=== PATIENT | female | born 1970 | race Caucasian/White ===

== ENCOUNTER 2021-10-18 11:14 | Day surgery (SDC) | payer BC ==
[~2021-10-18 11:14] MED LIST: Lactated Ringers 1,000 ML IV SCH; Sodium Chloride 0.9% 10 ML Syringe FLUSH PRN; Sodium Chloride 0.9% 2.5 ML Syringe FLUSH PRN; Sodium Chloride 0.9% 20 ML SDV IV PRN; propofoL 50 ML ONE
== END 2021-10-18 13:40 | disposition home or self-care (01) ==
LOC: MW.SDS 11:14
PROVIDERS: ATTEND Surgery
DX: Z12.11 Encounter for screening for malignant neoplasm of colon (principal); F32.A Depression, unspecified; Z79.899 Other long term (current) drug therapy
CPT/HCPCS: 45378; J2704; J7120; 00812

== ENCOUNTER 2024-11-15 08:22 | Day surgery (SDC) | payer BC, OTHER ==
[~2024-11-15 08:22] MED LIST changes: +Albuterol 0.083% 2.5 MG/3 ML Neb Soln NEB PRN; +Dexamethasone 4 MG/ML 5 ML MDV ONE; -Lactated Ringers 1,000 ML IV SCH; +Naloxone 0.4 MG/ML SDV IVPUSH PRN; +Ondansetron 4 MG/2 ML SDV IVPUSH PRN; -Sodium Chloride 0.9% 20 ML SDV IV PRN; +fentaNYL 50 MCG/ML SDV IVPUSH PRN; -propofoL 50 ML ONE
[2024-11-15] MEDS: Scopalamine 1mg/3day Transdermal Patch TOP ONE (08:45)
[2024-11-15 08:59] LABS: MEAN PLATELET VOLUME 9.6 fL (9.4-12.3); NRBC ABSOLUTE 0.00 K/uL (0.00-0.02); NRBC PERCENT 0.0 /100WBC (0.0-0.2); PLATELET COUNT,PLT 220 K/uL (150-400); RED BLOOD CELL COUNT 4.12 M/uL (4.10-5.30); WHITE BLOOD CELL COUNT,WBC 4.54 K/uL (3.9-11.3)
[2024-11-15] MEDS: Lactated Ringers 1,000 ML IV SCH (09:00)
[2024-11-15] MEDS ORDERED: fentaNYL 100 MCG/2 ML SDV ONE (10:22)
[2024-11-15] MEDS ORDERED: Propofol 200 MG/20 ML SDV ONE (10:22)
[2024-11-15] MEDS ORDERED: Ketorolac 30 MG/ML SDV ONE (10:22)
[2024-11-15] MEDS ORDERED: Midazolam 1 MG/ML 2 ML SDV ONE (10:22)
[2024-11-15] MEDS ORDERED: propofoL 500 MG/50 ML 50 ML ONE (10:47)
[2024-11-15] MEDS ORDERED: ePHEDrine 50 MG/ML SDV ONE (11:24)
== END 2024-11-15 12:55 | disposition home or self-care (01) ==
LOC: MW.SDS 08:22
PROVIDERS: ATTEND Obstetrics & Gynecology
DX: N84.0 Polyp of corpus uteri (principal); F32.A Depression, unspecified; Z79.899 Other long term (current) drug therapy
CPT/HCPCS: 00952; 36415; 85027; A9270-GY; J1100; J1885; J2003; J2250; J2704; J3010; J3490; J7120